=== PATIENT | female | born 2000 | race Caucasian/White ===

== ENCOUNTER 2018-03-03 20:33 | Emergency (ER) | payer OTHER ==
[~2018-03-03] VITALS: Ht 180.3 cm; Wt 79.4 kg
[2018-03-03] MEDS ORDERED: BUTALB-APAP-CA1 EACH PO (22:03)
[2018-03-03 22:20] VITALS: BP 114/65
== END 2018-03-03 22:22 | disposition home or self-care (01) ==
LOC: ER 20:33
DX: G43.909 Migraine, unspecified, not intractable, without status migrainosus (principal)